=== PATIENT | female | born 1970 | race Caucasian/White ===

== ENCOUNTER 2021-01-08 15:06 | Emergency (ER) | payer OTHER ==
[~2021-01-08] VITALS: Ht 165.1 cm; Wt 63.5 kg
[2021-01-08] MEDS ORDERED: KETOROLAC TROMETHAMINE 15 MG INJ IM ONE (16:30)
[2021-01-08 16:45] LABS: HEMATOCRIT 34.8 % (31.2-41.9); MEAN CORPUSCULAR HEMOGLOBIN 29.7 uug (24.7-32.8); MEAN CORPUSCULAR VOLUME 88.3 fL (75.5-95.3); PLATELET COUNT (AUTO) 251 K/uL (179-408)
[2021-01-08 16:57] LABS: BILIRUBIN,TOTAL 0.2 mg/dL (0.2-1.0); CREATININE 0.9 mg/dL (0.6-1.3); POTASSIUM 3.7 mmol/L (3.5-5.1); TOTAL PROTEIN, SERUM 7.6 g/dL (6.4-8.2)
[2021-01-08] MEDS ORDERED: KETOROLAC TROMETHAMINE 30 MG INJ ONE (17:05)
[2021-01-08] MEDS ORDERED: IBUP-1953 PO (17:15)
[2021-01-08] MEDS ORDERED: MEDR10TA10 PO ×2 (17:15→17:20)
[2021-01-08 17:41] VITALS: BP 112/67
--- NOTE | 2021-01-08 17:41 | NUR ---
Patient discharged to home in stable condition. Written and verbal after care instructions given. Patient verbalizes understanding of instructions. Stressed follow up or return to ER for worsening s/s.
== END 2021-01-08 17:45 | disposition home or self-care (01) ==
LOC: ER 15:09
DX: N93.9 Abnormal uterine and vaginal bleeding, unspecified (principal)
CPT/HCPCS: 36415; 76856; 85025; A4663; J1885